=== PATIENT | female | born 1935 | race Two or more races ===

== ENCOUNTER 2018-10-06 15:51 | Inpatient (IN) | payer OTHER ==
[~2018-10-06] VITALS: Ht 162.6 cm; Wt 83.9 kg
[2018-10-06] MEDS ORDERED: NITROGLYCERIN OINT 1GM/INCH UDPKT TD ONE (16:15)
[2018-10-06 16:37] LABS: BASOPHILS % 1.2 % (0.0-2.0); EOSINOPHILS % 1.7 % (0.0-5.0); HEMATOCRIT. 34.5 % (36.0-48.0); HEMOGLOBIN. 11.1 g/dL (12.0-16.0); LYMPHOCYTES % 31.4 % (20.0-50.0); MEAN CORPUSCULAR HEMOGLOBIN 27.4 pg (28.0-32.0); MEAN CORPUSCULAR VOLUME 85.6 fL (81.0-99.0); MEAN PLATELET VOLUME 8.8 fl (7.4-10.4); MONOCYTES % 7.1 % (2.0-8.0); NEUTROPHILS % 58.6 % (40.0-76.0); PLATELET 214 x1000/uL (130-400); RED BLOOD CELL COUNT 4.03 mill/uL (4.2-5.4); RED CELL DISTRIBUTION WIDTH 14.6 % (11.6-14.6)
[2018-10-06 16:39] LABS: CHLORIDE 108 mEq/L (98-107); INR 1.1; PROTHROMBIN TIME 11.4 sec (9.6-11.0)
[2018-10-06 16:45] LABS: CLARITY URINE CLEAR (CLEAR); COLOR URINE YELLOW (YELLOW); KETONES URINE NEGATIVE (NEGATIVE); LEUKOCYTE ESTERASE URINE NEGATIVE (NEGATIVE); NITRITE URINE NEGATIVE (NEGATIVE); OCCULT BLOOD URINE NEGATIVE (NEGATIVE); PH URINE 5.5 (4.5-8.0); PROTEIN URINE NEGATIVE (NEGATIVE); SPECIFIC GRAVITY URINE 1.018 (1.005-1.030)
[2018-10-06] MEDS ORDERED: SODIUM CHLORIDE 0.9% 1,000 ML IV ONE (17:29)
[2018-10-06] MEDS ORDERED: DOCUSATE SODIUM 100MG CAPSULE PO PRN (19:00)
[2018-10-06] MEDS ORDERED: NITROGLYCERIN 0.4MG TABLET SL SL PRN (19:00)
[2018-10-06] MEDS ORDERED: ACETAMINOPHEN 325MG TABLET PO PRN (19:00)
[2018-10-06] MEDS ORDERED: GUAIFENESIN 200MG/10ML SUGAR FREE UDC PO PRN (19:00)
[2018-10-06] MEDS ORDERED: IPRATROPIUM/ALBUTEROL 0.5-3(2.5)MG/3ML NEB INH PRN (19:00)
[2018-10-06] MEDS ORDERED: MAGNESIUM/ALUMINUM HYDROXIDE/SIMETHICONE 30ML UDC PO PRN (19:00)
[2018-10-06] MEDS ORDERED: DEXTROSE 50% WATER 50ML SYRINGE IV PRN (19:00)
[2018-10-06] MEDS ORDERED: CLONIDINE 0.1MG TABLET PO PRN (19:00)
[2018-10-06] MEDS ORDERED: ONDANSETRON HCL 4MG/2ML INJ IV PRN (19:00)
[2018-10-06] MEDS ORDERED: TRAMADOL 50MG TABLET PO PRN (20:45)
[2018-10-06] MEDS: INSULIN LISPRO 100 UNITS/ML SUBCUT SCH (21:00)
[2018-10-06] MEDS ORDERED: ENOXAPARIN 40MG/0.4ML SYR SUBCUT SCH (21:00)
[2018-10-06] MEDS ORDERED: ZOLPIDEM TARTRATE 5MG TABLET PO PRN (21:00)
[2018-10-06] MEDS ORDERED: FAMOTIDINE 20MG TABLET PO SCH (21:00)
[2018-10-06] MEDS: BLOOD SUGAR DIAGNOSTIC STRIP TEST SCH (21:00)
[2018-10-06 21:35] VITALS: BP 160/66
[2018-10-06 22:00] VITALS: BP 160/66
[2018-10-06] MEDS: HYDRALAZINE HCL 50MG TABLET PO SCH (23:01)
[2018-10-06] MEDS ORDERED: LORA2TAB95 PO (23:53)
[2018-10-06] MEDS ORDERED: ISOS20TA57 PO (23:53)
[2018-10-06] MEDS ORDERED: HYDR-4005 PO (23:53)
[2018-10-06] MEDS ORDERED: ALBU18HF2 IH (23:53)
[2018-10-06] MEDS ORDERED: LORA2VIA34 IM (23:53)
[2018-10-06] MEDS ORDERED: LISI40TA4 PO (23:53)
[2018-10-06] MEDS ORDERED: OLOP5DRO14 EACHEYE (23:53)
[2018-10-06] MEDS ORDERED: NALO4SPR BOTHNSTRLS (23:53)
[2018-10-06] MEDS ORDERED: AMLO10TA80 PO (23:53)
[2018-10-06] MEDS ORDERED: POTA-9 PO (23:53)
[2018-10-06] MEDS ORDERED: ASPI-1159 PO (23:57)
[2018-10-06] MEDS ORDERED: DORZ1DRO7 OP (23:57)
[2018-10-06] MEDS ORDERED: BRIM.2 EACHEYE (23:57)
[2018-10-06] MEDS ORDERED: LIP40 PO (23:57)
[2018-10-07] VITALS: BP 153/54
[2018-10-07] MEDS ORDERED: FURO-152 PO
[2018-10-07] MEDS ORDERED: FLUT9.9S BOTHNSTRLS
[2018-10-07] MEDS ORDERED: NPH,100I SQ
[2018-10-07] MEDS ORDERED: HYDR-4135 PO
[2018-10-07 00:12] LABS: CREATINE KINASE 162 IU/L (26-192)
[2018-10-07 00:13] LABS: CREATINE KINASE MB FRACTION 1.1 ng/mL (0.5-3.6)
[2018-10-07 04:00] VITALS: BP 162/87
[2018-10-07] MEDS: HYDRALAZINE HCL 50MG TABLET PO SCH ×2 (05:38→14:25)
[2018-10-07 06:49] LABS: CREATINE KINASE 204 IU/L (26-192)
[2018-10-07] MEDS: INSULIN LISPRO 100 UNITS/ML SUBCUT SCH ×3 (06:50→17:26)
[2018-10-07] MEDS: BLOOD SUGAR DIAGNOSTIC STRIP TEST SCH ×3 (06:50→16:26)
[2018-10-07 06:52] LABS: CREATINE KINASE MB FRACTION 1.4 ng/mL (0.5-3.6)
[2018-10-07 07:30] VITALS: BP_SYST 123; BP_SYST 125; BP_DIAS 69; BP_DIAS 75
[2018-10-07] MEDS ORDERED: ASPIRIN 325MG EC TABLET PO SCH (09:00)
[2018-10-07 12:39] VITALS: BP 129/72
[2018-10-07 14:45] VITALS: BP 129/72
[2018-10-07 16:00] VITALS: BP 159/61
== END 2018-10-07 19:55 | disposition short-term general hospital (02) | DRG 313 ==
LOC: ER 15:51 → EDBD 15:51 → 8WST 17:58 → EDBEDREQ 18:00 → ENRESERV 20:25 → 3WST 10-07 14:00 → 8WST 10-07 14:02
PROVIDERS: ADMIT Internal Medicine; ATTEND Internal Medicine
DX: R07.89 Other chest pain (principal); D63.8 Anemia in other chronic diseases classified elsewhere; R00.1 Bradycardia, unspecified; E11.9 Type 2 diabetes mellitus without complications; I11.0 Hypertensive heart disease with heart failure; I50.9 Heart failure, unspecified; Z90.710 Acquired absence of both cervix and uterus; Z91.018 Allergy to other foods
CPT/HCPCS: 36415; 71045; 80061; 82550; 82553; 82962; 83036; 83880; 84484; 93005; 93306; 93970; 96360; 99285; J1650; J1815; J7030